=== PATIENT | female | born 1945 | race Two or more races ===

== ENCOUNTER 2019-03-02 15:02 | Emergency (ER) | payer MEDICARE, OTHER ==
[~2019-03-02] VITALS: Wt 56.1 kg
[2019-03-02 15:05] VITALS: BP 159/75; PULSE 89; RESP 18
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
[2019-03-02] MEDS ORDERED: ACETAMINOPHEN 325 MG TAB PO ONE (16:00)
[2019-03-02] MEDS ORDERED: IBUPROFEN 200 MG TAB PO ONE (16:00)
[2019-03-02] MEDS ORDERED: ACET325T33 PO (17:28)
== END 2019-03-02 17:45 | disposition home or self-care (01) ==
LOC: FTE 15:02
DX: S06.0X0A Concussion without loss of consciousness, initial encounter (principal); E11.9 Type 2 diabetes mellitus without complications; I10 Essential (primary) hypertension; S00.03XA Contusion of scalp, initial encounter; S50.312A Abrasion of left elbow, initial encounter; V01.10XA Pedestrian on foot injured in collision with pedal cycle in traffic accident, initial encounter
CPT/HCPCS: 70450